=== PATIENT | male | born 1950 | race Caucasian/White ===

== ENCOUNTER 2018-07-31 23:53 | Inpatient (IN) ==
[2018-08-01] MEDS ORDERED: HUMULIN R IV ONE ×2 (00:51→03:39)
[2018-08-01] MEDS ORDERED: NS 1,000 ML IV ONE ×3 (00:51→05:20)
[2018-08-01] MEDS ORDERED: ZOFRAN IV ONE (00:51)
[2018-08-01 01:11] LABS: ALLEN TEST YES; BE -10.6 mmoll (-3.0-3.0); BLOOD TYPE ARTERIAL; HCO3-(ACT) 16.5 mmoll (20.0-26.0); METHB 1.3 % (0.0-1.5); MODALITY ROOM AIR; O2(CT) 23.7 mL/dL (15.0-23.0); O2HB 93.6 % (95.0-99.0); PCO2(98.6) 21 mmHg (35-45); PO2(98.6) 76 mmHg (60-100); SAMPLE BLOOD; SAO2 96.8 % (95.0-100.0); pH(98.6) 7.36 (7.35-7.45)
[2018-08-01 01:45] LABS: ACETONE SERUM NEGATIVE (NEGATIVE)
[2018-08-01 02:00] LABS: URINE SOURCE CLEAN CATCH
--- NOTE | 2018-08-01 02:27 | PROVIDER DOCUMENTATION ---
This chart was entered by Darryl Kelly Scribe, acting as scribe for Yaima Anand MD. HPI-General Adult - General Source: patient - History of Present Illness -Gen Adult Nature of Presenting Problems: Pt is a 68 y/o M presents to the ED with not feeling well, dry mouth, constipation and loss of appetite for 3 days. He reports nausea and denies vomiting. He says he has some chest discomfort, sore throat and malaise. He says 1 week ago he was dx with the flu. When asked about his diabetes pt reports he has not taken his Metformin for 1 week. Pt says he is noncompliant with his medication. Location of Pain/Injury: reports: generalized Pain Radiation: reports: no radiation Quality of Pain: reports: aching Severity: reports: severe Onset/Duration: reports: 3 days ago Timing: reports: still present Context/Activities at Onset: reports: none Modifying Factors: improves with: nothing Associated Symptoms: reports: chest pain, constipation, malaise, nausea. denies : dizziness, fever/chills, vomiting, trouble walking Similar Symptoms Previously?: No Recently seen or treated by another doctor?: No - Diabetes Related Context Context: reports: high blood sugar <Yaima Anand - Last Filed: 08/01/18 02:27> <Shauna Sun - Last Filed: 08/01/18 05:21> - General Chief Complaint: Flu Symptoms Stated Complaint: FLU SX/ HIGH BLOOD SUGAR Time Seen by Provider: 08/01/18 00:41 Allergies/Adverse Reactions: Patient Allergies Allergy/AdvReac Type Severity Reaction Status Date / Time No Known Allergies Allergy Verified 07/20/16 08:37 Home Medications: Home Medication List Medication Instructions Recorded Confirmed Last Taken Type Aspirin [Ecotrin] 81 mg PO DAILY 07/20/16 07/20/16 07/19/16 History Atorvastatin Calcium [Lipitor] 40 mg PO DAILY 07/20/16 07/20/16 07/19/16 History Benazepril HCl 40 mg PO DAILY 07/20/16 07/20/16 07/19/16 History Carvedilol [Coreg] 12.5 mg PO DAILY 07/20/16 07/20/16 07/19/16 History Glimepiride 4 mg PO DAILY 07/20/16 07/20/16 07/19/16 History Review of Systems - Adult - REVIEW OF SYSTEMS - ADULT Constitutional: denies: chills, fever Eyes: reports: no symptoms reported Ears, Nose, Mouth & Throat: reports: throat pain. denies: ear pain Cardiovascular: reports: chest pain. denies: edema, palpitations Respiratory: denies: cough, shortness of breath, wheezing Gastrointestinal: reports: nausea. denies: abdominal pain, vomiting Genitourinary: reports: no symptoms reported Musculoskeletal: denies: back pain, neck pain Integumentary: reports: no symptoms reported Neurological: denies: dizziness/vertigo, headache/migraines Psychiatric: reports: no symptoms reported Endocrine: reports: no symptoms reported Hematologic/Lymphatic: reports: no symptoms reported Allergic/Immunologic: reports: no symptoms reported All Other Systems: Reviewed and Negative <Yaima Anand - Last Filed: 08/01/18 02:27> Past History - Adult - PAST MEDICAL HISTORY-ADULT Review of Records: reports: Old Records Reviewed, Nursing Assessment Review, Medications Reviewed Major Childhood Illnesses: reports: denies history Cardiovascular: reports: HTN - IMMUNIZATION STATUS Childhood Immunizations: See Nurse Assessment Flu Vaccine: See Nurse Assessment - FAMILY HISTORY Family History: reviewed, not pertinent - SOCIAL HISTORY Smoking: non-smoker, quit greater than 1 year Living Situation: family <Yaima Anand - Last Filed: 08/01/18 02:27> Physical Exam-General - PHYSICAL EXAM-ADULT Initial Vital Signs Reviewed: Yes - CONSTITUTIONAL General Appearance: alert, mild distress, other (restless). negative: appears well (ill in appearance) - EYES Eyes: PERRL/EOMI, pink conjunctivae - HEAD, EARS, NOSE, MOUTH & THROAT HENMT: pharynx normal. negative: moist mucous membranes (dry) - NECK Neck: non-tender, full range of motion, supple, normal inspection - RESPIRATORY Respiratory: lungs clear, normal breath sounds, no pleuratic chest pain, no respiratory distress, no accessory muscle use - CARDIOVASCULAR Cardiovascular: normal peripheral pulses, regular rate, rhythm - GASTROINTESTINAL (ABDOMEN) Abdominal Exam: normal bowel sounds, non tender, soft - MUSCULOSKELETAL Back Exam: normal inspection, no CVA tenderness, no vertebral tenderness Extremity: normal range of motion, non-tender, normal gait, normal inspection - SKIN Integumentary: normal color, normal turgor, warm/dry - NEUROLOGIC Neurologic: grossly normal, no motor/sensory deficits - PSYCHIATRIC Psych/Mental Status: normal mood/affect, normal thought content, normal thought process, oriented x 3 <Yaima Anand - Last Filed: 08/01/18 02:27> Progress - PLAN OF CARE/RESULTS Progress/Plan/Lab Results: Vital Signs - 8 hr 08/01/18 00:33 Temperature 98.2 F Pulse Rate 108 H Respiratory Rate 16 Blood Pressure 156/98 O2 Sat by Pulse Oximetry 95 Laboratory Results - last 24 hr 08/01/18 00:35 POC Glucose 500 H <Yaima Anand - Last Filed: 08/01/18 02:27> - PLAN OF CARE/RESULTS Progress/Plan/Lab Results: Vital Signs - 8 hr 08/01/18 00:33 08/01/18 00:48 08/01/18 00:50 Temperature 98.2 F Pulse Rate 108 H 95 H 100 H Respiratory Rate 16 5 L 14 Blood Pressure 156/98 O2 Sat by Pulse Oximetry 95 97 08/01/18 00:51 08/01/18 01:00 08/01/18 01:01 Temperature Pulse Rate 99 H 97 H 95 H Respiratory Rate 14 14 12 Blood Pressure 147/109 154/102 O2 Sat by Pulse Oximetry 97 93 L 93 L 08/01/18 01:10 08/01/18 01:20 08/01/18 01:30 Temperature Pulse Rate 98 H 99 H 106 H Respiratory Rate 16 19 18 Blood Pressure O2 Sat by Pulse Oximetry 98 95 95 08/01/18 01:31 08/01/18 01:49 08/01/18 01:50 Temperature Pulse Rate 101 H 98 H 98 H Respiratory Rate 13 11 L 20 Blood Pressure 139/105 O2 Sat by Pulse Oximetry 95 90 L 95 08/01/18 01:51 08/01/18 02:00 08/01/18 02:01 Temperature Pulse Rate 102 H 100 H 100 H Respiratory Rate 16 13 17 Blood Pressure 165/118 151/110 O2 Sat by Pulse Oximetry 95 94 L 93 L 08/01/18 02:10 08/01/18 02:20 08/01/18 02:30 Temperature Pulse Rate 98 H 94 H 94 H Respiratory Rate 30 H 32 H 26 H Blood Pressure O2 Sat by Pulse Oximetry 91 L 92 L 92 L 08/01/18 02:31 08/01/18 02:32 08/01/18 02:40 Temperature Pulse Rate 94 H 95 H 95 H Respiratory Rate 26 H 28 H 25 H Blood Pressure 142/104 O2 Sat by Pulse Oximetry 90 L 91 L 92 L 08/01/18 02:50 08/01/18 03:00 08/01/18 03:01 Temperature Pulse Rate 93 H 92 H 89 Respiratory Rate 28 H 20 23 Blood Pressure 153/105 O2 Sat by Pulse Oximetry 91 L 93 L 94 L 08/01/18 03:10 08/01/18 03:20 08/01/18 03:30 Temperature Pulse Rate 106 H 91 H 84 Respiratory Rate 18 9 L 17 Blood Pressure O2 Sat by Pulse Oximetry 88 L 95 98 08/01/18 03:40 08/01/18 03:50 08/01/18 04:00 Temperature Pulse Rate 82 86 89 Respiratory Rate 15 14 17 Blood Pressure O2 Sat by Pulse Oximetry 97 97 95 08/01/18 04:10 08/01/18 04:20 08/01/18 04:30 Temperature Pulse Rate 85 86 83 Respiratory Rate 17 24 16 Blood Pressure O2 Sat by Pulse Oximetry 95 92 L 96 08/01/18 04:40 08/01/18 04:50 Temperature Pulse Rate 88 92 H Respiratory Rate 26 H 25 H Blood Pressure O2 Sat by Pulse Oximetry 92 L 96 08/01/18 00:56 Influenza Screen - Final Nasopharyngeal 08/01/18 00:53 Group A Strep Rapid Antigen - Final Throat Laboratory Results - last 24 hr 08/01/18 08/01/18 08/01/18 00:35 00:51 00:53 WBC RBC Hgb Hct MCV MCH MCHC RDW Std Deviation Plt Count MPV Immature Gran % (Auto) Neut % (Auto) Lymph % (Auto) [place] % (Auto) Eos % (Auto) Baso % (Auto) Immature Gran # (Auto) Neut # (Auto) Lymph # (Auto) [place] # (Auto) Eos # (Auto) Baso # (Auto) Specimen Type ARTERIAL Sample Site R RADIAL pH 7.36 pCO2 21 L pO2 76 HCO3 16.5 L Base Excess -10.6 L Oxyhemoglobin 93.6 L ABG O2 Sat (Calculated) 23.7 H ABG O2 Saturation 96.8 ABG Carboxyhemoglobin 1.90 ABG Methemoglobin 1.3 Biju Test YES A-a O2 Difference 47.0 Total Hemoglobin 18.0 H Lactate 3.30 H Blood Gas Modality ROOM AIR FiO2 % 21.0 Sodium Potassium Chloride Carbon Dioxide Anion Gap BUN Creatinine Estimated GFR/1.73 m2 BUN/Creatinine Ratio Glucose POC Glucose 500 H Calculated Osmolality Calcium Magnesium Total Bilirubin AST ALT Alkaline Phosphatase Total Protein Albumin Globulin Albumin/Globulin Ratio Plasma Lactate Urine Source CLEAN CATCH Urine Color YELLOW Urine Turbidity CLEAR Urine pH 5.0 Ur Specific [place] 1.029 Urine Protein TRACE A Ur Glucose (Stick) >1000 A Ur Ketones (Stick) 100 A Urine Blood NEGATIVE Urine Nitrite NEGATIVE Urine Bilirubin NEGATIVE Urobilinogen Dipstick NORMAL Urine Leukocytes NEGATIVE Urine WBC (Auto) <10 Urine RBC (Auto) <10 U Epithel Cells (Auto) <10 Urine Bacteria (Auto) NEGATIVE Acetone Level 08/01/18 08/01/18 08/01/18 00:56 00:56 03:00 WBC 15.98 H RBC 6.21 H Hgb 18.4 H Hct 54.4 H MCV 87.6 MCH 29.6 MCHC 33.8 RDW Std Deviation 12.5 Plt Count 315 MPV 11.5 H Immature Gran % (Auto) 0.3 Neut % (Auto) 81.5 H Lymph % (Auto) 6.8 L [place] % (Auto) 11.3 H Eos % (Auto) 0.0 Baso % (Auto) 0.1 Immature Gran # (Auto) 0.05 H Neut # (Auto) 13.04 H Lymph # (Auto) 1.08 L [place] # (Auto) 1.80 H Eos # (Auto) 0.00 Baso # (Auto) 0.01 Specimen Type Sample Site pH pCO2 pO2 HCO3 Base Excess Oxyhemoglobin ABG O2 Sat (Calculated) ABG O2 Saturation ABG Carboxyhemoglobin ABG Methemoglobin Biju Test A-a O2 Difference Total Hemoglobin Lactate Blood Gas Modality FiO2 % Sodium 136 Potassium 5.7 H Chloride 89 L Carbon Dioxide 14 L Anion Gap 33 BUN 36 H Creatinine 1.6 H Estimated GFR/1.73 m2 43 BUN/Creatinine Ratio 23 Glucose 704 H* POC Glucose Calculated Osmolality 313 Calcium 9.6 Magnesium 2.7 Total Bilirubin 1.51 H AST 16 ALT 28 Alkaline Phosphatase 110 Total Protein 8.3 Albumin 4.6 Globulin 3.7 Albumin/Globulin Ratio 1.2 Plasma Lactate 2.6 H Urine Source Urine Color Urine Turbidity Urine pH Ur Specific [place] Urine Protein Ur Glucose (Stick) Ur Ketones (Stick) Urine Blood Urine Nitrite Urine Bilirubin Urobilinogen Dipstick Urine Leukocytes Urine WBC (Auto) Urine RBC (Auto) U Epithel Cells (Auto) Urine Bacteria (Auto) Acetone Level NEGATIVE Orders Category Date Time Status FSBS [Finger Stick Blood Sugar (ED)] DIRECTED Care 08/01/18 03:07 Active cxr [CHEST-2 VIEWS] [RAD] Stat Exams 08/01/18 01:16 Taken ABG [RESP] Routine Lab 08/01/18 00:51 Completed ACETONE SERUM [CHEM] Stat Lab 08/01/18 00:56 Completed BLOOD CULTURE [BLDCUL] Stat Lab 08/01/18 04:05 Results CBC WITH ELECTRONIC DIFF [HEME] Stat Lab 08/01/18 00:56 Completed COMPREHENSIVE METABOLIC PANEL [CHEM] Stat Lab 08/01/18 00:56 Completed DIRECT STREP Stat Lab 08/01/18 00:53 Completed INFLUENZA SCREEN A/B Stat Lab 08/01/18 00:56 Completed LACTATE, PLASMA [CHEM] Stat Lab 08/01/18 03:00 Completed MAGNESIUM [CHEM] Stat Lab 08/01/18 00:56 Completed TROPONIN T Stat Lab 08/01/18 04:57 Received URINALYSIS W/POSS RFLX CULT [URINALYSIS] Stat Lab 08/01/18 00:53 Completed 0.9% Sodium Chloride Inj [Ns] 1,000 ml Med 08/01/18 04:29 Discontinued .ROUTE As Directed 0.9% Sodium Chloride Inj [Ns] 1,000 ml Med 08/01/18 00:51 Discontinued IV 999 mls/hr 0.9% Sodium Chloride Inj [Ns] 1,000 ml Med 08/01/18 00:52 Discontinued IV 999 mls/hr Azithromycin 500 mg/Ns [Zithromax 500 mg/Ns] Med 08/01/18 03:10 Discontinued 500 mg in 250 ml IV NOW CefTRIAXONE [Rocephin] 1 gm Med 08/01/18 03:10 Discontinued 0.9% Sodium Chloride Inj [Ns] 50 ml IV NOW Insulin Glargine [Basaglar] Med 08/01/18 03:38 Discontinued 25 unit SUBQ NOW ONE Insulin Human Regular [Humulin R] Med 08/01/18 00:51 Discontinued 8 unit IV NOW ONE Insulin Human Regular [Humulin R] Med 08/01/18 03:39 Discontinued 8 unit IV NOW ONE Ondansetron [Zofran] Med 08/01/18 00:51 Discontinued 4 mg IV NOW ONE Transfer/Admit Order [TRANSFER] Routine Transfer 08/01/18 03:29 Ordered Signed out to me by Dr Anand at the end of his shift to reassess him after labs returned and determine dispo. His BG is 700 and insulin regular was repeated. He also appears to have RLL pna. He was treated for community acquired PNA and admitted to the hospitalist service. Result Diagrams: 08/01/18 00:56 08/01/18 00:56 <Shauna Sun - Last Filed: 08/01/18 05:21> Departure <Yaima Anand - Last Filed: 08/01/18 02:27> - Departure Date of Disposition Decision: 08/01/18 Time of Disposition Decision: 03:00 Certified Medical Emergency: Emergent - Critical Care Note This patient required my direct & personal management of CC.: No <Shauna Sun - Last Filed: 08/01/18 05:21> - Departure DIAGNOSIS: Hyperglycemia RLL pneumonia Qualifiers: Pneumonia type: due to unspecified organism Qualified Code(s): J18.1 - Lobar pneumonia, unspecified organism Disposition: ADMITTED INPATIENT 09 Condition: Fair Attestation - Physician/ BIA Attestation The physician spent face to face time with patient:: Yes Advanced Practice Provider documentation review:: Supervising physician onsite and consulted in the evaluation and care of this patient. The physician did have a face to face encounter with the patient. <Shauna Sun - Last Filed: 08/01/18 05:21> This chart was documented by the indicated scribe, (Darryl Kelly Scribe) and accurately reflects the services I performed and decisions made by me, Yaima Anand MD, as attested by the provider's signature.
[2018-08-01 02:33] LABS: AGAP 33; ALB/GLOB RATIO 1.2; ALBUMIN 4.6 g/dL (3.5-5.0); ALKALINE PHOSPHATASE 110 U/L (32-122); BUN 36 mg/dL (8-22); CALCIUM 9.6 mg/dL (8.8-10.2); CHLORIDE 89 mmol/L (98-107); COSMO 313; CREATININE 1.6 mg/dL (0.7-1.2); ESTIMATED GFR 43; GLUCOSE 704 mg/dL (70-104); GOT 16 U/L (10-34); GPT 28 U/L (10-44); MAGNESIUM 2.7 mg/dL (1.5-2.7); POTASSIUM 5.7 mmol/L (3.5-5.1); SODIUM 136 mmol/L (136-145); TCO2 14 mmol/L (25-35); TOTAL BILIRUBIN 1.51 mg/dL (0.20-1.00); TOTAL PROTEIN 8.3 g/dL (6.3-8.3)
[2018-08-01 02:40] LABS: BILIRUBIN URINE NEGATIVE (NEGATIVE); BLOOD URINE NEGATIVE (NEGATIVE); COLOR YELLOW; GLUCOSE URINE >1000 mg/dL (NEGATIVE); KETONE URINE 100 mg/dL (NEGATIVE); LEUKOCYTES URINE NEGATIVE (NEGATIVE); NITRITE URINE NEGATIVE (NEGATIVE); PROTEIN URINE TRACE mg/dL (NEGATIVE); SP GRAVITY URINE 1.029; TURBIDITY URINE CLEAR (CLEAR); UROBILINOGEN URINE NORMAL (NORMAL)
[2018-08-01 02:42] LABS: UR EPITHELIAL CELLS <10 /HPF (<10); URINE BACTERIA NEGATIVE /HPF; URINE RBC <10 /HPF (<10); URINE WBC <10 /HPF (<10)
[2018-08-01 02:53] LABS: BASO# 0.01 X1000 (0.0-0.2); BASO% 0.1 % (0.0-0.8); HEMATOCRIT 54.4 % (42.0-52.0); HEMOGLOBIN 18.4 g/dL (14.0-18.0); IMM GRAN# 0.05 X1000 (0.0-0.04); IMM GRAN% 0.3 % (0.0-0.5); LYMPH# 1.08 X1000 (1.2-3.4); LYMPH% 6.8 % (20.5-51.1); MCH 29.6 PG (27-31); MCHC 33.8 g/dL (33-37); MCV 87.6 FL (81-99); MONO% 11.3 % (1.7-9.3); MPV 11.5 FL (7.4-10.4); NEUT# 13.04 X1000 (1.4-6.5); NEUT% 81.5 % (42.2-75.2); PLT 315 X1000 (130-400); RBC 6.21 XMIL (4.7-6.1); RDW 12.5 % (11.5-14.5); WBC 15.98 X1000 (4.8-10.8)
[2018-08-01] MEDS ORDERED: ZITHROMAX 500 MG/NS 500 MG/250 ML IVPB IV ONE (03:10)
[2018-08-01] MEDS ORDERED: ROCEPHIN 1 GM in NS 50 ML IV ONE (03:10)
[2018-08-01] MEDS ORDERED: BASAGLAR SUBQ ONE (03:38)
[2018-08-01] MEDS ORDERED: NS 1,000 ML ONE (04:29)
[2018-08-01] MEDS ORDERED: NS 1,000 ML IV SCH (05:26)
[2018-08-01] MEDS ORDERED: ZOFRAN IV PRN (05:26)
[2018-08-01] MEDS: HUMALOG SUBQ SCH ×5 (06:06→20:54)
[2018-08-01] MEDS: LOVENOX SUBQ SCH (06:06)
--- NOTE | 2018-08-01 06:34 | Diag Imaging Result Doc PS360 ---
CHEST-2 VIEWS - 08/01/2018 INDICATION: LACTATE 3; INFLUENZA; R/O PNA COMPARISON: None FINDINGS: There is dense focal infiltrate in the right middle lobe. Heart size is normal. No pneumothorax or pleural effusion. IMPRESSION: Right middle lobe pneumonia. Electronically signed by Luiz Hills 08/01/2018 6:32 AM
--- NOTE | 2018-08-01 06:58 | HISTORY AND PHYSICAL ---
Patient of Dr. Usama Dacosta. REASON FOR ADMISSION: One week history of generalized weakness, increasing polyuria, polydipsia and cough. 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 He reports that just over a week ago, he was seen in the ER for influenza and started on Tamiflu. He said for the most part, his respiratory symptoms have been getting better. At that time, he had a cough, wheezing, diffuse aches. Still has some residual wheezing. He reports that he had stopped taking his Amaryl and metformin for the last 1 week. He noticed progressive worsening of polydipsia, polyuria but no blurred vision, no polyphagia. He decided to come in when he noticed he could not register his blood sugars on his machine in addition to these findings. He also reports intermittent pressure like chest pain with no associated anginal symptoms. Said this pressure like chest pain has been pretty much intermittent but lasts up to an hour and has not increased in intensity or frequency. He admits to having a dry cough, but no fever, no chills, no leg swelling. No extremity redness. REVIEW OF SYSTEMS: Notable for some mild constipation, nausea but no vomiting. No diarrhea. No genitourinary complaints other than polyuria. Positive dry mouth. No postural lightheadedness. Otherwise positive findings as noted above. ALLERGIES: No known allergies. MEDICATIONS: Not reconciled. Supposed to be on Amaryl and metformin. FAMILY HISTORY: Notable for diabetes and hypertension. SOCIAL HISTORY: Drinks maybe a couple of beers a week. Lives with his girlfriend. No illicit drug use. SURGICAL HISTORY: Nil. LAB WORK: White count 16,000, H and H 18 and 54, platelets 315,000, 81% neutrophils. Potassium 5.7. BUN 36, creatinine 1.6. Glucose 704. Patient's bicarb is 14, gap is 33. Lactate is 2.6. Total bilirubin is 1.5. Glucose is 1000, ketones about 100. PH 7.36, PO2 is 76, PCO2 21, bicarb 16, lactate 3.3. This is on room air. Chest film shows a right lower lobe pneumonia. PHYSICAL EXAMINATION: VITAL SIGNS: Blood pressure 142/104, heart rate is 94, respirations 26, temperature is 98.2 degrees. He is 90% on room air. GENERAL: Elderly man who is in no acute distress. He is A and O x3. He has normal mood and affect. HEENT: Head is normocephalic, atraumatic. Eyes: PERRL, EOMI. ENT and oropharyngeal exam is notable for severe xerostomia. No exudates or erythema. No central cyanosis. NECK: Supple. No JVD, carotid bruit or thyromegaly. CHEST: Clear when auscultated. Good air entry both lung dunbar. CARDIOVASCULAR: First and second heart sounds are heard. No gallops, murmurs or rubs. Rhythm is regular. ABDOMEN: Protuberant, soft, nontender, no organomegaly. Bowel sounds are normal. RECTAL: Deferred at this time. EXTREMITIES: No edema, clubbing or peripheral cyanosis. Patient has decreased distal pulse volume in all extremities, symmetrical and regular. NEUROLOGICAL: No gross focal deficits. SKIN: Intact with significantly decreased skin turgor. MUSCULOSKELETAL: Grossly normal. ASSESSMENT: 1. Uncontrolled type 2 diabetes with possible starvation ketones. Cannot rule out early onset DKA. 2. Probable right lower lobe pneumonia. 3. Acute kidney injury probably secondary to severe dehydration. 4. Severe dehydration secondary to poorly controlled type 2 diabetes. 5. Hyperlipidemia. 6. Hypertension. PLAN: Patient will continue aggressive IV fluid resuscitation. At this point in time, the patient is on the cusp of going into DKA. Due to logistical reasons, we will try and see if this can be managed with fluids and subcutaneous insulin. Of course, the patient is in the ER and it will be much more difficult to start him on insulin drip, especially since he is borderline and this will require close attention in monitoring his sugars. We will defer probable insulin initiation until ICU or CIC floor where he can be appropriately managed and risks of hypoglycemia will be much less. Still believe he can get by with sliding scale with increased frequency. Pneumonia will be treated with Zithromax and Rocephin being that it is community acquired. We have held SUSANNE inhibitors in the short term and other medications in light of patient's renal dysfunction. A1c and lipid panel have been ordered and need to be followed. cc: DO Yair Winn MD
[2018-08-01 09:56] LABS: AGAP 19; BUN 29 mg/dL (8-22); CALCIUM 8.3 mg/dL (8.8-10.2); CHLORIDE 109 mmol/L (98-107); COSMO 309; CREATININE 1.1 mg/dL (0.7-1.2); ESTIMATED GFR > 60; GLUCOSE 387 mg/dL (70-104); POTASSIUM 4.5 mmol/L (3.5-5.1); SODIUM 144 mmol/L (136-145); TCO2 16 mmol/L (25-35)
[2018-08-01] MEDS: NS 1,000 ML IV SCH ×2 (10:45→17:40)
--- NOTE | 2018-08-01 11:18 | PROGRESS NOTE ---
DATE: 08/01/2018 INTERVAL HISTORY: Mr. Doherty was admitted overnight for chief complaints of weakness, polyuria, polydipsia, cough since 1-week duration. He was recently diagnosed with influenza and had completed a course of Tamiflu. However, he had not been taking his diabetes medications. Overnight, he was not started on insulin drip, the reason being the patient probably did not have a bed in the ICU or [facility] and the night hospitalist was concerned that keeping him on an insulin drip in the emergency room where because of logistics, it may not be monitored as well as it would otherwise in ICU and would be difficult to manage insulin drip, so he was only started on subcutaneous insulin Lantus and sliding scale. Also, on reviewing ABG, he did not have acidosis on arrival. SUBJECTIVE: The patient continues to feel the same. He denies any chest pain or shortness of breath. He denies nausea, vomiting, abdominal pain. He states he had completed course of Tamiflu. He has not been taking his diabetes medications just because he was not feeling well. HbA1c of 13 suggests he has been largely noncompliant with his medications. OBJECTIVE: Vitals: Temperature of 98.9 degrees, pulse 79, blood pressure 147/ 93, respiratory rate of 20, saturating 90% on 2 L nasal cannula. HEENT: Oral cavity dry. Lungs: Air entry bilaterally equal with bilateral basal crackles, more pronounced on the right infrascapular than left. No wheeze or rhonchi. Cardiac: S1, S2 normal. No murmur, rub, or gallop. Abdomen: Soft, nontender. Extremities: No lower extremity edema. LABORATORY: Evaluation suggests leukocytosis, polycythemia, normal platelet count, pH of 7.36. Repeat chemistry suggests resolution of hyperkalemia, resolution of acute kidney injury, decreasing anion gap from 33 on admission to 19. Persistent hyperglycemia. MICROBIOLOGY: Blood culture, no growth to date. Throat culture, influenza screen pending. Influenza screen was negative. Group A strep rapid antigen was negative. ASSESSMENT AND PLAN: 1. Hyperglycemia with elevated anion gap and low bicarbonate without acidosis in case off non- insulin-dependent diabetes mellitus type 2 with medical noncompliance. The patient was not on insulin drip considering him being in the emergency room. It was concerning that insulin therapy may not be monitored as well as in intensive care unit setting. Continue current dose of sliding scale insulin with fingersticks every 4 hours and long-acting Lantus. Follow up with BMP during daytime. Continue intravenous fluids. Adjust the rate according to BMP. 2. Acute hypoxic respiratory failure and sepsis due to Right lower lobe post influenza pneumonia. Continue intravenous ceftriaxone and azithromycin. Follow up with urine streptococcal antigen. 3. Acute kidney injury secondary to volume depletion because of hyperglycemia and glycosuria, currently improving. Monitor BMP. 4. History of essential hypertension. Start patient on home carvedilol. Hold enalapril considering acute kidney insufficiency. 5. History of hyperlipidemia. Continue home atorvastatin, omega-3 fatty acids and aspirin. 6. Disposition. Patient remains inside the hospital for uncontrolled diabetes. Plan of care was discussed with the patient. All of his questions have been answered. cc: Renato Duckworth MD MTDD
[2018-08-01 13:46] LABS: AGAP 15; BUN 27 mg/dL (8-22); CALCIUM 8.3 mg/dL (8.8-10.2); CHLORIDE 112 mmol/L (98-107); COSMO 304; ESTIMATED GFR > 60; GLUCOSE 280 mg/dL (70-104); POTASSIUM 4.3 mmol/L (3.5-5.1); SODIUM 145 mmol/L (136-145); TCO2 18 mmol/L (25-35)
[2018-08-01 18:38] LABS: POTASSIUM 4.4 mmol/L (3.5-5.1)
[2018-08-01 18:39] LABS: AGAP 16; BUN 24 mg/dL (8-22); CALCIUM 8.4 mg/dL (8.8-10.2); CHLORIDE 111 mmol/L (98-107); COSMO 298; ESTIMATED GFR > 60; GLUCOSE 224 mg/dL (70-104); SODIUM 144 mmol/L (136-145); TCO2 17 mmol/L (25-35)
[2018-08-01] MEDS: BASAGLAR SUBQ SCH (20:52)
[2018-08-01] MEDS: COREG PO SCH (20:52)
[2018-08-02] MEDS: NS 1,000 ML IV SCH ×2 (00:12→08:20)
[2018-08-02] MEDS: HUMALOG SUBQ SCH ×7 (00:37→22:38)
[2018-08-02] MEDS: ZITHROMAX 500 MG/NS 500 MG/250 ML IVPB IV SCH (04:00)
[2018-08-02] MEDS: ROCEPHIN 2 GM in NS 50 ML IV SCH (04:00)
[2018-08-02] MEDS: LOVENOX SUBQ SCH (04:37)
[2018-08-02 06:48] LABS: AGAP 12; ALB/GLOB RATIO 0.8; ALBUMIN 2.6 g/dL (3.5-5.0); ALKALINE PHOSPHATASE 71 U/L (32-122); BUN 20 mg/dL (8-22); CALCIUM 7.1 mg/dL (8.8-10.2); CHLORIDE 115 mmol/L (98-107); COSMO 297; CREATININE 0.7 mg/dL (0.7-1.2); ESTIMATED GFR > 60; GLUCOSE 167 mg/dL (70-104); GOT 22 U/L (10-34); GPT 16 U/L (10-44); MAGNESIUM 2.2 mg/dL (1.5-2.7); POTASSIUM 3.5 mmol/L (3.5-5.1); SODIUM 146 mmol/L (136-145); TCO2 19 mmol/L (25-35); TOTAL BILIRUBIN 0.49 mg/dL (0.20-1.00); TOTAL PROTEIN 5.9 g/dL (6.3-8.3)
[2018-08-02 07:43] LABS: BASO# 0.01 X1000 (0.0-0.2); BASO% 0.1 % (0.0-0.8); EOS# 0.02 X1000 (0.0-0.7); EOS% 0.2 % (0.0-10.0); HEMATOCRIT 38.9 % (42.0-52.0); IMM GRAN# 0.03 X1000 (0.0-0.04); IMM GRAN% 0.2 % (0.0-0.5); LYMPH# 0.74 X1000 (1.2-3.4); LYMPH% 5.6 % (20.5-51.1); MCH 29.9 PG (27-31); MCHC 33.4 g/dL (33-37); MCV 89.4 FL (81-99); MONO# 0.99 X1000 (0.11-0.59); MONO% 7.4 % (1.7-9.3); MPV 10.7 FL (7.4-10.4); NEUT# 11.54 X1000 (1.4-6.5); NEUT% 86.5 % (42.2-75.2); PLT 214 X1000 (130-400); RBC 4.35 XMIL (4.7-6.1); RDW 12.2 % (11.5-14.5); WBC 13.33 X1000 (4.8-10.8)
[2018-08-02 08:07] LABS: BANDS 22 % (0-1); LYMPHS 10 % (21-51); MONO 2 % (1-9); SEGS 64 % (42-75)
[2018-08-02] MEDS: FISH OIL CONCENTRATE PO SCH (08:20)
[2018-08-02] MEDS: COREG PO SCH ×2 (08:20→22:37)
[2018-08-02] MEDS: ASPIRIN EC PO SCH (08:20)
[2018-08-02] MEDS: DUONEB (A & A) INH SCH ×5 (09:58→23:20)
[2018-08-02 12:17] LABS: ALLEN TEST YES; BE -2.2 mmoll (-3.0-3.0); BLOOD TYPE ARTERIAL; HCO3-(ACT) 23.1 mmoll (20.0-26.0); O2(CT) 16.3 mL/dL (15.0-23.0); PCO2(98.6) 30 mmHg (35-45); PO2(98.6) 62 mmHg (60-100); SAMPLE BLOOD; SAO2 97.5 % (95.0-100.0); THB 12.3 g/dL (11.5-17.4); pH(98.6) 7.45 (7.35-7.45)
[2018-08-02 12:18] LABS: MODALITY ROOM AIR
--- NOTE | 2018-08-02 15:50 | PROGRESS NOTE ---
DATE: 08/02/2018 INTERVAL HISTORY: No interval events overnight. His anion gap had closed. He was able to eat. He still feels exhausted. His blood sugars were in acceptable range. SUBJECTIVE: He feels better than before; however, he continues to have cough. He continues to feel very exhausted. I discussed with him about post influenza exhaustion and that it is going to take a while before he starts feeling better. OBJECTIVE: Vital Signs: Currently, temperature 99.1 degrees, pulse 62 per minute, blood pressure 122/70, saturating 92% to 93% on room air; however, he does not appear to be any in any acute distress. General: Does not appear in any acute distress. HEENT: Oral cavity is moist. Lungs: Air entry bilaterally equal with bilateral basal crackles, more pronounced on right infrascapular region than left. No wheeze or rhonchi. Heart: S1, S2 normal. No murmur, rub, or gallop. Abdomen: Soft, nontender. No lower extremity edema. Neurologic: Alert, oriented x3. DIAGNOSTIC STUDIES: Labs suggestive of improving leukocytosis, stable hemoglobin, hematocrit, and platelet count with drop in hemoglobin likely because of intravenous fluid resuscitation. ABG suggestive of PO2 of 62 and pH of 7.45. Electrolytes suggestive of hypernatremia, hyperchloremia, improving bicarbonate. Resolution of acute kidney injury. Blood sugars in acceptable range. MICROBIOLOGY: Blood culture: No growth to date. Influenza screen was negative. IMAGING: No new imaging today. ASSESSMENT AND PLAN: 1. Hyperglycemia, elevated anion gap, and low bicarbonate without acidosis, in case of non- insulin-dependent diabetes mellitus type 2 with medical noncompliance. The patient did not receive insulin drip on presentation, considering him being in the emergency room and the logistic issues with a busy emergency room, and he was only started on subcutaneous glargine and sliding scale insulin, to which he has responded. I will continue the patient on glargine and sliding scale insulin with his fingerstick glucose monitoring spaced out to with every meal and at nighttime. I will stop intravenous fluids as he is able to take by mouth. 2. Acute hypoxic respiratory failure and sepsis due to right lower lobe pneumonia, which he developed post influenza. He had completed a course of oseltamivir about at least 2 to 3 days prior to presentation. Continue intravenous ceftriaxone and azithromycin. Follow up with urine streptococcal antigen. 3. Acute kidney injury secondary to volume depletion because of hyperglycemia and glycosuria, currently improving. Monitor BMP. 4. Start home carvedilol for history of essential hypertension. Hold enalapril considering acute kidney injury. 5. Hyperlipidemia. Continue home atorvastatin, omega-3 fatty acids, and aspirin. DISPOSITION: Patient remains inside the hospital as we manage his pneumonia and diabetes. Plan of care was discussed with the patient. All of his questions have been answered. The patient would likely to be discharged on Lantus insulin therapy in the next 24 to 48 hours. cc: Renato Duckworth MD
[2018-08-02] MEDS: BASAGLAR SUBQ SCH (22:37)
[2018-08-02] MEDS: LIPITOR PO SCH (22:37)
[2018-08-02] MEDS: VITAMIN E PO SCH (22:37)
[2018-08-02] MEDS ORDERED: INSULIN PEN NEEDLES ONE (22:37)
[2018-08-03] MEDS: TYLENOL PO PRN ×3 (01:50→17:14)
[2018-08-03] MEDS: DUONEB (A & A) INH SCH ×4 (03:35→15:59)
[2018-08-03] MEDS: ROCEPHIN 2 GM in NS 50 ML IV SCH (04:56)
[2018-08-03] MEDS: ZITHROMAX 500 MG/NS 500 MG/250 ML IVPB IV SCH (05:40)
[2018-08-03 05:41] LABS: BASO# 0.02 X1000 (0.0-0.2); BASO% 0.1 % (0.0-0.8); EOS% 0.6 % (0.0-10.0); HEMATOCRIT 38.3 % (42.0-52.0); HEMOGLOBIN 12.9 g/dL (14.0-18.0); IMM GRAN# 0.07 X1000 (0.0-0.04); IMM GRAN% 0.5 % (0.0-0.5); LYMPH# 1.01 X1000 (1.2-3.4); LYMPH% 6.5 % (20.5-51.1); MCH 30.3 PG (27-31); MCHC 33.7 g/dL (33-37); MCV 89.9 FL (81-99); MONO# 0.98 X1000 (0.11-0.59); MONO% 6.3 % (1.7-9.3); NEUT# 13.29 X1000 (1.4-6.5); PLT 223 X1000 (130-400); RBC 4.26 XMIL (4.7-6.1); RDW 12.5 % (11.5-14.5); WBC 15.47 X1000 (4.8-10.8)
[2018-08-03] MEDS ORDERED: LOPRESSOR PO ONE (05:43)
[2018-08-03 05:57] LABS: AGAP 14; BUN 17 mg/dL (8-22); CALCIUM 7.9 mg/dL (8.8-10.2); CHLORIDE 110 mmol/L (98-107); COSMO 293; CREATININE 0.7 mg/dL (0.7-1.2); ESTIMATED GFR > 60; GLUCOSE 190 mg/dL (70-104); POTASSIUM 3.4 mmol/L (3.5-5.1); SODIUM 144 mmol/L (136-145); TCO2 20 mmol/L (25-35)
[2018-08-03] MEDS ORDERED: KLOR-CON PO ONE (06:13)
[2018-08-03] MEDS: LOVENOX SUBQ SCH (06:19)
[2018-08-03] MEDS: HUMALOG SUBQ SCH ×4 (06:20→22:08)
--- NOTE | 2018-08-03 07:44 | EKG Report ---
Test Performed on : 08/03/2018 04:58:23 AM Test Reason : increased heart rate Blood Pressure : / mmHG Vent. Rate : 152 BPM Atrial Rate : 159 BPM P-R Int : 000 ms QRS Dur : 084 ms QT Int : 306 ms P-R-T Axes : 000 029 -14 degrees QTc Int : 486 ms Atrial fibrillation. with rapid ventricular response. Cannot rule out Inferior infarct , age undetermined Abnormal ECG No previous ECGs available Confirmed by Ivette HERNADEZ, Juan R Solis ([id number]) on 08/04/2018 6:48:03 AM
[2018-08-03] MEDS: ASPIRIN EC PO SCH (08:47)
[2018-08-03] MEDS: FISH OIL CONCENTRATE PO SCH (08:47)
[2018-08-03] MEDS: VITAMIN E PO SCH (08:47)
[2018-08-03] MEDS: LIPITOR PO SCH (08:47)
[2018-08-03] MEDS ORDERED: COREG PO ONE (16:29)
[2018-08-03] MEDS ORDERED: NS NEB INH SCH (17:45)
--- NOTE | 2018-08-03 18:19 | PROGRESS NOTE ---
DATE: 08/03/2018 SUBJECTIVE: The patient has no major complaints. OBJECTIVE: Vital signs: Blood pressure is 146/96, heart rate 74, respiratory rate 17, temperature 100.4 degrees. Cardiovascular: Regular rate and rhythm. Pulmonary: Bilateral breath sounds clear to auscultation. GI: Soft, nontender, nondistended. Bowel sounds are positive. General: The patient looks pretty well to me. Anticipate possible discharge soon. However, he did develop atrial fibrillation with RVR last night and then developed some bradycardia after institution of medications, from what I understand. LABORATORY DATA: Potassium 3.4. Rest of the labs were okay. White count is 15, hemoglobin and hematocrit 12 and 38. PROBLEM LIST: 1. Right middle lobe pneumonia. We will continue treatment. He has had influenza recently. He is on Rocephin and azithromycin. 2. Acute kidney injury. That seems to be stabilizing or resolved. 3. Hyperglycemia. That is not improving. There is no clear DKA. We will adjust medicines accordingly. 4. Hypertension. Continue his regular medications, Coreg. Probably able to resume his enalapril. 5. Disposition. Anticipate discharge soon but pending clinical status. 6. Uncontrolled or worsening atrial fibrillation with rapid ventricular response. He seems rate controlled now that he is back on his Coreg, which may need to be adjusted accordingly. Echo has been obtained. We will monitor him. I have held a Cardiology consult just because service overwhelmed currently and he is back in a normal rhythm. I did adjust his breathing treatments because he was on albuterol to Xopenex and we will see how he does. 7. His sugars are still not completely controlled, but he is not on his usual glyburide and metformin. His Lantus may need to be adjusted also. Although accordingly here, he may just need a little bit more treatment, although at this point I think he can tolerate some metformin. cc: Reji Riojas MD
[2018-08-03] MEDS ORDERED: METFORMIN HCL PO SCH (21:00)
[2018-08-03] MEDS ORDERED: GLIPIZIDE PO SCH (21:00)
[2018-08-03] MEDS: ATROVENT NEB INH SCH (21:10)
[2018-08-03] MEDS: XOPENEX NEB INH SCH (21:10)
[2018-08-03] MEDS: BASAGLAR SUBQ SCH (22:07)
[2018-08-03] MEDS: GLUCOPHAGE PO SCH (22:07)
[2018-08-03] MEDS: COREG PO SCH (22:07)
[2018-08-03] MEDS: GLUCOTROL PO SCH (22:07)
[2018-08-04] MEDS: XOPENEX NEB INH SCH ×3 (03:00→15:50)
[2018-08-04] MEDS: ATROVENT NEB INH SCH ×3 (03:00→15:50)
[2018-08-04] MEDS: ROCEPHIN 2 GM in NS 50 ML IV SCH (03:53)
[2018-08-04] MEDS: ZITHROMAX 500 MG/NS 500 MG/250 ML IVPB IV SCH (03:53)
[2018-08-04] MEDS: HUMALOG SUBQ SCH ×3 (06:17→15:59)
[2018-08-04] MEDS: LOVENOX SUBQ SCH (06:24)
--- NOTE | 2018-08-04 07:42 | ECHO REPORT ---
ORDER DATE: 08/03/2018 MEASUREMENTS: Left ventricular end-diastolic diameter 4.8. End systolic diameter 2.3. Septal thickness 1.2. Posterior wall thickness 1.0. Aortic root 3.0. Left atrium 3.2. SUMMARY: 1. Technically difficult study due to limited acoustic window quality. 2. Aortic valve is without evidence of structural abnormality and opens adequately on 2- dimensional images. Peak gradient across the aortic valve is 14 mmHg. Mitral and tricuspid valves are without evidence of structural abnormality with trace mitral regurgitation and trace tricuspid regurgitation. Pulmonic valve is less well demonstrated. The aortic root is normal size. 3. Normal left ventricular dimensions suggested. Estimated left ventricular ejection fraction appears to be at least 65%. No regional wall abnormalities can be appreciated. Left atrium, right atrium, right ventricle are normal in size with grossly preserved right ventricular systolic function. 4. No pericardial effusion. 5. Appearance of inferior vena cava suggests normal central venous pressure. cc: Nayan Peter MD
[2018-08-04 08:14] LABS: BASO# 0.02 X1000 (0.0-0.2); BASO% 0.1 % (0.0-0.8); EOS# 0.14 X1000 (0.0-0.7); EOS% 0.8 % (0.0-10.0); HEMATOCRIT 36.9 % (42.0-52.0); HEMOGLOBIN 12.5 g/dL (14.0-18.0); IMM GRAN# 0.09 X1000 (0.0-0.04); IMM GRAN% 0.5 % (0.0-0.5); LYMPH# 0.99 X1000 (1.2-3.4); LYMPH% 5.9 % (20.5-51.1); MCH 30.1 PG (27-31); MCHC 33.9 g/dL (33-37); MCV 88.9 FL (81-99); MONO# 1.12 X1000 (0.11-0.59); MONO% 6.6 % (1.7-9.3); MPV 10.6 FL (7.4-10.4); NEUT# 14.55 X1000 (1.4-6.5); NEUT% 86.1 % (42.2-75.2); PLT 264 X1000 (130-400); RBC 4.15 XMIL (4.7-6.1); RDW 12.4 % (11.5-14.5); WBC 16.91 X1000 (4.8-10.8)
[2018-08-04 08:40] LABS: AGAP 13; BUN 11 mg/dL (8-22); CALCIUM 8.1 mg/dL (8.8-10.2); CHLORIDE 110 mmol/L (98-107); COSMO 291; CREATININE 0.7 mg/dL (0.7-1.2); ESTIMATED GFR > 60; GLUCOSE 115 mg/dL (70-104); MAGNESIUM 1.9 mg/dL (1.5-2.7); POTASSIUM 3.3 mmol/L (3.5-5.1); SODIUM 146 mmol/L (136-145); TCO2 23 mmol/L (25-35)
[2018-08-04 08:46] LABS: BANDS 6 % (0-1); LYMPHS 10 % (21-51); MONO 4 % (1-9); SEGS 80 % (42-75)
[2018-08-04] MEDS: COREG PO SCH (08:54)
[2018-08-04] MEDS: ASPIRIN EC PO SCH (08:54)
[2018-08-04] MEDS: LIPITOR PO SCH (08:54)
[2018-08-04] MEDS: GLUCOTROL PO SCH ×2 (08:54→16:00)
[2018-08-04] MEDS: GLUCOPHAGE PO SCH ×2 (08:54→16:00)
[2018-08-04] MEDS: FISH OIL CONCENTRATE PO SCH (08:54)
[2018-08-04] MEDS: VITAMIN E PO SCH (08:54)
[2018-08-04] MEDS: TYLENOL PO PRN (08:54)
[2018-08-04] MEDS ORDERED: KLOR-CON PO ONE (09:21)
[2018-08-04 15:58] VITALS: BP 148/99
--- NOTE | 2018-08-05 03:12 | DISCHARGE SUMMARY ---
ADMISSION DATE: 08/01/2018 DISCHARGE DATE: 08/04/2018 DISCHARGE DIAGNOSES: 1. Pneumonia, right lower lobe. 2. Acute kidney injury, severe dehydration. 3. Diabetes. 4. Atrial fibrillation, with RVR. CONSULTATIONS: None. HISTORY AND HOSPITAL COURSE: Briefly, this is a 68-year-old male presenting with shortness of breath. He was found to have pneumonia and dehydration. He was placed on fluids, Rocephin, and azithromycin. His initial creatinine was around 1.6. He improved with fluid resuscitation. He was also hyperglycemic, but was not felt to be a DKA. He was controlled with his regular medications. Creatinine improved with hydration. I think on the night of the , or into the , he developed atrial fibrillation with rapid ventricular response, which is not a clear diagnosis he has. He was given Cardizem, and then he developed some bradycardia, for which he subsequently after medications kind of piled on. We put him back on his Coreg, and his heart rate has been under control since then. He has been afebrile since the . In any case, the patient still has some leukocytosis, but overall improved. He had some pneumonia, right middle lobe, which he has been slowly improving on that, and his atrial fibrillation has been controlled. DISCHARGE MEDICATIONS: Aspirin 81 daily, Lipitor 40 daily, benazepril 40 daily, Coreg 12.5 b.i.d., glipizide 5/500 b.i.d., omega-3 daily, vitamin E daily, Eliquis 5 b.i.d., azithromycin 250 daily for 3 days, Omnicef 300 p.o. b.i.d. for 3 days. DISCHARGE CONDITION: Stable. Breathing is comfortable. His echocardiogram showed an EF of 65%, and no major structural abnormalities. He does have atrial fibrillation. His [id number] score is greater than 2. He is 68. He has got hypertension. He has got diabetes, so I do think he needs chronic anticoagulation. I told him to hold his aspirin until [facility] can [facility], and Dr. Guille Dacosta. Would recommend followup CBC in about a week, and followup chest x-ray in 4 to 6 weeks, just to document resolution. His bands have decreased. He had 22% on admission, and down to 6. His white count still is up a bit, but has been persistently so. Clinically, he has improved. Saturations are 97, 95 on room air. He has been afebrile. I think he is stable for discharge at this point. cc: Reji Riojas MD
== END 2018-08-04 17:43 | disposition home or self-care (01) | DRG 637 ==
LOC: ED 23:53 → SUATTDRO 08-01 04:52 → EDIPHOLD 08-01 04:52 → 3S 08-01 13:23 → 3N 08-02 14:46
PROVIDERS: ATTEND Internal Medicine
CPT/HCPCS: 71020; 71046; 80048; 80053; 80061; 81001; 82009; 82550; 82805; 82948; 83036; 83605; 83721; 83735; 84443; 84484; 85025; 87040; 87070; 87081; 87205; 87275; 87276; 87430; 87804; 87899; 93005; 93010; 93306; 94640; 94761; 94799; 96361; 96365; 96368; 96372; 96375; 99285; A9270; J0456; J0696; J1650; J1815; J2405; J7030; XXXXX